=== PATIENT | female | born 1950 | race African-American/Black ===

== ENCOUNTER 2017-02-27 19:42 | Emergency (ER) | payer OTHER ==
[~2017-02-27] VITALS: Ht 154.9 cm; Wt 95.3 kg
[2017-02-27] MEDS ORDERED: ZESTRIL20 MG (19:53)
[2017-02-27] MEDS ORDERED: LABETALOL HCL300 MG (19:53)
[2017-02-27] MEDS ORDERED: ADULT ASPIRIN81 MG (19:54)
[2017-02-27] MEDS ORDERED: CLONAZEPAM2 MG (19:54)
[2017-02-27] MEDS ORDERED: ZANTAC150 M3 (19:54)
[2017-02-27] MEDS ORDERED: OMEPRAZOLE20 MG (19:54)
[2017-02-27] MEDS ORDERED: FORTAMET1000 MG (19:55)
[2017-02-27] MEDS ORDERED: VASOTEC20 M1 (19:55)
== END 2017-02-27 22:26 | disposition home or self-care (01) ==
LOC: ER 19:42
DX: R10.13 Epigastric pain (principal)

== ENCOUNTER 2021-06-22 14:41 | Emergency (ER) | payer OTHER ==
[~2021-06-22] VITALS: Ht 160 cm; Wt 81.6 kg
[~2021-06-22 14:41] MED LIST: ADULT ASPIRIN81 MG; CLONAZEPAM2 MG; FORTAMET1000 MG; LABETALOL HCL300 MG; OMEPRAZOLE20 MG; VASOTEC20 M1; ZANTAC150 M3; ZESTRIL20 MG
[2021-06-22] MEDS ORDERED: ATORVASTATIN CA40 MG (14:49)
[2021-06-22] MEDS ORDERED: TRAZODONE HCL150 MG (14:50)
[2021-06-22] MEDS ORDERED: LOREEV XR2 MG (14:50)
== END 2021-06-22 21:17 | disposition home or self-care (01) ==
LOC: ER 14:41
DX: S30.0XXA Contusion of lower back and pelvis, initial encounter (principal); S00.83XA Contusion of other part of head, initial encounter; W06.XXXA Fall from bed, initial encounter; Y93.9 Activity, unspecified; Y92.013 Bedroom of single-family (private) house as the place of occurrence of the external cause; Y99.9 Unspecified external cause status; I10 Essential (primary) hypertension; E11.9 Type 2 diabetes mellitus without complications; Z79.84 Long term (current) use of oral hypoglycemic drugs